=== PATIENT | female | born 1955 | race Caucasian/White ===

== ENCOUNTER 2016-08-24 10:54 | Outpatient (CLI) ==
[2016-08-24 11:10] LABS: BILIRUBIN,URINE Negative (NEGATIVE); KETONES,URINE Negative (NEGATIVE); LEUKOCYTE ESTERASE ,URINE 2+ (NEGATIVE); NITRITE,URINE Negative (NEGATIVE); PROTEIN,URINE 3+ (NEGATIVE); URINE, BLOOD 3+ (NEGATIVE)
[2016-08-24 11:13] LABS: ADD URINE MICROSCOPIC YES; BACTERIA,URINE 4+ (NOT PRESENT)
== END 2016-08-24 10:55 | disposition home or self-care (01) ==
LOC: LAB 10:54 → NONPT 10:55
PROVIDERS: ATTEND Family Medicine
DX: N39.0 Urinary tract infection, site not specified (principal); Z09 Encounter for follow-up examination after completed treatment for conditions other than malignant neoplasm
CPT/HCPCS: 81001; 87086

== ENCOUNTER 2017-03-19 14:11 | Outpatient (CLI) | payer OTHER | END 2017-03-19 14:12 | disposition home or self-care (01) | LOC: NONPT 14:11 | PROVIDERS: ATTEND Family Medicine | DX: R50.9 Fever, unspecified (principal) ==

== ENCOUNTER 2017-03-19 18:09 | Outpatient (CLI) | payer OTHER ==
[2017-03-19 18:44] LABS: BILIRUBIN,URINE Negative (NEGATIVE); KETONES,URINE Negative (NEGATIVE); LEUKOCYTE ESTERASE ,URINE 2+ (NEGATIVE); NITRITE,URINE Positive (NEGATIVE); PROTEIN,URINE 3+ (NEGATIVE); URINE, BLOOD 2+ (NEGATIVE)
[2017-03-19 18:45] LABS: BASOPHILS % (AUTO) 0.4 % (0.0-3.0); EOSINOPHILS # (AUTO) 0.1 K/ul (0.0-0.7); EOSINOPHILS % (AUTO) 0.9 % (0.0-7.0); HEMATOCRIT 45.7 % (37.0-47.0); HEMOGLOBIN 14.9 g/dl (12.0-16.0); IMMATURE GRANULOCYTE % (AUTO) 0.5 % (0.0-5.0); LYMPHOCYTES # (AUTO) 1.3 K/uL (0.60-3.4); LYMPHOCYTES % (AUTO) 23.7 (10.0-50.0); MEAN CORPUSCULAR HEMOGLOBIN 30.2 pg (27.0-31.0); MEAN CORPUSCULAR HGB CONC 32.6 (31.8-35.4); MEAN CORPUSCULAR VOLUME 92.5 fl (81.0-99.0); MONOCYTES # (AUTO) 0.5 K/uL (0.4-2.0); MONOCYTES % (AUTO) 9.4 (0-10); NEUTROPHILS # (AUTO) 3.7 K/ul (2.0-6.9); NEUTROPHILS % (AUTO) 65.1; PLATELET COUNT 186 10^3/uL (140-440); RED BLOOD COUNT 4.94 10^6/ul (4.20-5.40); WHITE BLOOD COUNT 5.65 K/ul (4.6-10.2)
[2017-03-19 18:47] LABS: ADD URINE MICROSCOPIC YES
[2017-03-19 18:49] LABS: BACTERIA,URINE 4+ (NOT PRESENT)
[2017-03-19 18:57] LABS: ALBUMIN 3.6 g/dL (3.4-5.0); ALBUMIN/GLOBULIN RATIO 1.38; ANION GAP 13.9; BILIRUBIN,TOTAL 0.39 mg/dL (0.00-1.20); BUN/CREATININE RATIO 72.88; CALCIUM 9.3 mg/dL (8.2-10.2); CREATININE 0.59 mg/dL (0.60-1.30); POTASSIUM 3.9 mmol/L (3.5-5.10); TOTAL PROTEIN 6.2 g/dL (6.4-8.2)
== END 2017-03-19 18:10 | disposition home or self-care (01) ==
LOC: LAB 18:09 → NONPT 18:10
PROVIDERS: ATTEND Family Medicine
DX: R50.9 Fever, unspecified (principal); Z96.0 Presence of urogenital implants
CPT/HCPCS: 80053; 81001; 85025; 87086

== ENCOUNTER 2017-06-05 12:17 | Outpatient (CLI) ==
[2017-06-05 12:36] LABS: BASOPHILS % (AUTO) 0.3 % (0.0-3.0); EOSINOPHILS # (AUTO) 0.1 K/ul (0.0-0.7); EOSINOPHILS % (AUTO) 1.6 % (0.0-7.0); HEMATOCRIT 42.1 % (37.0-47.0); HEMOGLOBIN 13.9 g/dl (12.0-16.0); IMMATURE GRANULOCYTE % (AUTO) 0.2 % (0.0-5.0); LYMPHOCYTES # (AUTO) 1.5 K/uL (0.60-3.4); LYMPHOCYTES % (AUTO) 24.6 (10.0-50.0); MEAN CORPUSCULAR HEMOGLOBIN 30.4 pg (27.0-31.0); MEAN CORPUSCULAR VOLUME 92.1 fl (81.0-99.0); MONOCYTES # (AUTO) 0.5 K/uL (0.4-2.0); MONOCYTES % (AUTO) 7.7 (0-10); NEUTROPHILS % (AUTO) 65.6; PLATELET COUNT 216 10^3/uL (140-440); RED BLOOD COUNT 4.57 10^6/ul (4.20-5.40); WHITE BLOOD COUNT 6.09 K/ul (4.6-10.2)
[2017-06-05 12:53] LABS: FLU INTERNAL QC INTERNAL QC VALID; RAPID FLU A NEGATIVE (NEGATIVE); RAPID FLU B NEGATIVE (NEGATIVE)
[2017-06-05 12:55] LABS: ALBUMIN 3.3 g/dL (3.4-5.0); ALBUMIN/GLOBULIN RATIO 1.18; ANION GAP 13.6; BILIRUBIN,TOTAL 0.27 mg/dL (0.00-1.20); BUN/CREATININE RATIO 62.26; CALCIUM 9.4 mg/dL (8.2-10.2); CREATININE 0.53 mg/dL (0.60-1.30); POTASSIUM 4.6 mmol/L (3.5-5.10); TOTAL PROTEIN 6.1 g/dL (6.4-8.2)
== END 2017-06-05 12:18 | disposition home or self-care (01) ==
LOC: NONPT 12:17
PROVIDERS: ATTEND Family Medicine
DX: R68.89 Other general symptoms and signs (principal); R05 Cough; R50.9 Fever, unspecified; R09.89 Other specified symptoms and signs involving the circulatory and respiratory systems
CPT/HCPCS: 80053; 85025; 87804

== ENCOUNTER 2017-06-06 12:48 | Outpatient (CLI) ==
[2017-06-06 13:04] LABS: BILIRUBIN,URINE Negative (NEGATIVE); KETONES,URINE Negative (NEGATIVE); LEUKOCYTE ESTERASE ,URINE 2+ (NEGATIVE); NITRITE,URINE Negative (NEGATIVE); PH,URINE 7.5 (5-9); PROTEIN,URINE 3+ (NEGATIVE); URINE, BLOOD 2+ (NEGATIVE)
[2017-06-06 13:31] LABS: ADD URINE MICROSCOPIC YES
== END 2017-06-06 12:49 | disposition home or self-care (01) ==
LOC: NONPT 12:48
PROVIDERS: ATTEND Family Medicine
DX: R50.9 Fever, unspecified (principal)
CPT/HCPCS: 81001; 87086

== ENCOUNTER 2017-06-12 03:49 | Outpatient (CLI) | END 2017-06-12 03:50 | disposition short-term general hospital (02) | LOC: AMBL 03:49 | PROVIDERS: ATTEND Family Medicine | DX: R11.10 Vomiting, unspecified (principal); R09.89 Other specified symptoms and signs involving the circulatory and respiratory systems; G80.9 Cerebral palsy, unspecified; Z74.01 Bed confinement status ==

== ENCOUNTER 2017-07-22 14:49 | Outpatient (CLI) | END 2017-07-22 14:50 | disposition home or self-care (01) | LOC: NONPT 14:49 | PROVIDERS: ATTEND Family Medicine | DX: R41.9 Unspecified symptoms and signs involving cognitive functions and awareness (principal) | CPT/HCPCS: 81001; 87086 ==

== ENCOUNTER 2017-07-24 16:26 | Outpatient (CLI) | END 2017-07-24 16:27 | disposition short-term general hospital (02) | LOC: AMBL 16:26 | PROVIDERS: ATTEND Internal Medicine | DX: R09.89 Other specified symptoms and signs involving the circulatory and respiratory systems (principal) ==

== ENCOUNTER 2017-09-14 20:53 | Outpatient (CLI) | END 2017-09-14 20:54 | disposition home or self-care (01) | LOC: LAB 20:53 | PROVIDERS: ATTEND Family Medicine | DX: R31.9 Hematuria, unspecified (principal); R50.9 Fever, unspecified | CPT/HCPCS: 81001; 87086; 87186 ==

== ENCOUNTER 2017-10-03 15:22 | Outpatient (CLI) | END 2017-10-03 15:23 | disposition home or self-care (01) | LOC: NONPT 15:22 | PROVIDERS: ATTEND Family Medicine | DX: N39.0 Urinary tract infection, site not specified (principal) | CPT/HCPCS: 81001; 87086 ==

== ENCOUNTER 2017-10-12 18:17 | Outpatient (CLI) | END 2017-10-12 18:18 | disposition home or self-care (01) | LOC: NONPT 18:17 | PROVIDERS: ATTEND Family Medicine | DX: R05 Cough (principal); R50.9 Fever, unspecified | CPT/HCPCS: 87502 ==

== ENCOUNTER 2017-11-02 18:43 | Emergency (ER) | payer OTHER ==
[2017-11-02 18:54] VITALS: BP 127/58; TEMP 97.9; BMI 26.4
[2017-11-02] MEDS ORDERED: GENTAK OPTH OINT OP STA (19:18)
[2017-11-02] MEDS ORDERED: EYE-STREAM OP STA (19:28)
--- NOTE | 2017-11-02 20:27 | ED.PDOC ---
General ED Provider: Dr. ALIZA DAMON Chief Complaint: Eye Problem Stated Complaint: 1 week history of right eye redness with drainage. Time Seen by Physician: 19:00 Mode of Arrival: Stretcher Information Source: Family, Long-Term, EMT Exam Limitations: Other (cerebral palsy) Primary Care Provider: EMMANUEL RAMOS Nursing and Triage Documentation Reviewed and Agree: Yes Reviewed sepsis parameters & appropriate labs ordered?: No System Inflammatory Response Syndrome: Not Applicable Sepsis Protocol: For patient's 13 years and over: Temp is 96.8 and below OR 101 and greater Pulse >90 BPM Resp >20/minute Acutely Altered Mental Status Are patient's symptoms suggestive of a new infection, such as: -Pneumonia -Skin, Soft Tissue -Endocarditis -UTI -Bone, Joint Infection -Implantable Device -Acute Abdominal Infection -Wound Infection -Meningitis -Blood Stream Catheter Infection -Unknown System Inflammatory Response Syndrome: Not Applicable EENT Complaint Exam - Eye Complaint/Exam Onset/Duration: 1 week Symptoms Are: Still present Timing: Constant Initial Severity: Mild Current Severity: Moderate Location: Right Associated Signs and Symptoms: Reports: Clear drainage, Purulent drainage Related History: Denies: Trauma, Glaucoma Eye Surgical History: Reports: None Penetrating Injury Risk Factors: None Globe Rupture Risk Factors: None Acute Glaucoma Risk Factors: Eye Inflammation Optic Artery Occlusion Risk Factors: None Orbit Findings: Normal Globe Findings: Intact Conjunctival Findings: Red Corneal Findings: Clear Fundi: Not visualized Slit Lamp Used: No Differential Diagnoses: Conjunctivitis Review of Systems - Review Of Systems Constitutional: Reports: Other (limitd due to cerebral palsy) Eyes: Reports: Drainage, Inflammation GI: Denies: Vomiting : Reports: Incontinence Skin: Reports: No symptoms All Other Systems: Other (cerebral palsy) Past Medical History - Past Medical History Previously Healthy: No Endocrine: Reports: None Cardiovascular: Reports: None Respiratory: Reports: None Hematological: Reports: None Gastrointestinal: Reports: None Genitourinary: Reports: None Neuro/Psych: Reports: CVA, Seizure Musculoskeletal: Reports: Unknown Cancer: Reports: Unknown Last Menstrual Period: menopause Other Pertinent Past Medical History: cerebral palsy--dysphagia - Surgical History General Surgical History: Reports: Unknown - Family History Family History: Reports: Unknown - Social History Smoking Status: Unknown if ever smoked Hx Substance Use: No Alcohol Screening: None Physical Exam - Physical Exam Appearance: Well-nourished Eyes: Conjunctiva inflammed Critical Care Note - Critical Care Note Total Time (mins): 0 Course - Course Orders, Labs, Meds: Orders Category Date Time Status ED EYE IRRIGATION .ONCE EMERGENCY 11/02/17 19:28 Active Balanced Salt Solution [Eye-Stream] MEDS 11/02/17 19:28 Discontinued 1 bottle OP ONCE STA Gentamicin Sulfate [Gentak Opth Oint] MEDS 11/02/17 19:18 Discontinued 1 applic OP ONCE STA Medications Discontinued Medications Generic Name Dose Route Start Last Admin Trade Name Adrianna PRN Reason Stop Dose Admin Eye Irrigation Solution 1 bottle 11/02/17 19:28 11/02/17 20:12 Eye-Stream OP 11/02/17 19:29 1 bottle ONCE STA Administration Gentamicin Sulfate 1 applic 11/02/17 19:18 11/02/17 20:12 Gentak Opth Oint OP 11/02/17 19:19 1 applic ONCE STA Administration Vital Signs: Temp Pulse Resp BP Pulse Ox 11/02/17 18:44 97.9 F 88 20 127/58 L 97 Departure - Departure Time of Disposition: 20:25 Disposition: HOME SELF-CARE Discharge Problem: Conjunctivitis, right eye Qualifiers: Conjunctivitis type: acute Acute conjunctivitis type: bacterial Qualified Code( s): H10.31 - Unspecified acute conjunctivitis, right eye Instructions: Conjunctivitis (ED) Condition: Fair Pt referred to PMD for follow-up: Yes IPMP verified?: No Additional Instructions: Use eye ointment on the right eye Three times a day for 10 days. Follow up with PCPin 3 days. Allergies/Adverse Reactions: Allergies No Known Allergies Allergy (Unverified 11/02/17 18:59) Home Medications: Ambulatory Orders Acetaminophen 650 mg RC Q6HR PRN 11/02/17 Ascorbate Calcium [Vitamin C] 500 mg GT BEDTIME 11/02/17 Bisacodyl [Dulcolax] 10 mg RC DAILY 11/02/17 Calcium Carbonate/Vitamin D3 [Caltrate 600 + D Tablet] 1 each PO BID 11/02/17 Cholecalciferol (Vitamin D3) [Vitamin D3] 2,000 unit GT BID 11/02/17 Docusate Sodium [Dok] 100 mg PO DAILY 11/02/17 Erythromycin Base/Ethanol [Erythromycin 2% Solution] 60 ml TP Q12H PRN 11/02/17 Fluticasone Propionate [Flonase] 2 spray NS DAILY 11/02/17 Folic Acid 1 mg PO DAILY 11/02/17 Halobetasol Propionate 15 gm TP 3 TIMES PER WEEK PRN 11/02/17 Hypromellose [Goniovisc] 1 drop OP QID 11/02/17 Ketoconazole [Nizoral 2% Shampoo] 1 applic TP DIRECTED 11/02/17 Magnesium Hydroxide [Milk of Magnesia] 30 ml PO DIRECTED PRN 11/02/17 Metronidazole 60 gm TP BID 11/02/17 Mineral Oil/Petrolatum,White [Artificial Tears Eye Ointment] 3.5 gm OP BEDTIME 11/02/17 Nystatin [Nystop Powder] 1 applic TP Q8HR PRN 11/02/17 Phenytoin [Dilantin-125] 125 mg PO BID 11/02/17 Ranitidine HCl [Zantac] 150 mg PO QDAC 11/02/17 Rivaroxaban [Xarelto] 20 mg PO DAILY 11/02/17 Disposition Discussed With: Family
== END 2017-11-02 20:34 | disposition home or self-care (01) ==
LOC: ED 18:43
DX: H10.31 Unspecified acute conjunctivitis, right eye (principal); G80.9 Cerebral palsy, unspecified; Z86.73 Personal history of transient ischemic attack (TIA), and cerebral infarction without residual deficits; H57.11 Ocular pain, right eye; H57.9 Unspecified disorder of eye and adnexa
CPT/HCPCS: 99283

== ENCOUNTER 2017-11-14 14:45 | Outpatient (CLI) | payer OTHER | END 2017-11-14 14:46 | disposition home or self-care (01) | LOC: LAB 14:45 | PROVIDERS: ATTEND Family Medicine | DX: R56.9 Unspecified convulsions (principal); Z79.899 Other long term (current) drug therapy | CPT/HCPCS: 36415; 80185 ==

== ENCOUNTER 2017-11-15 07:32 | Outpatient (CLI) | payer OTHER | END 2017-11-15 07:33 | disposition home or self-care (01) | LOC: NONPT 07:32 | PROVIDERS: ATTEND Family Medicine | DX: R89.2 Abnormal level of other drugs, medicaments and biological substances in specimens from other organs, systems and tissues (principal) | CPT/HCPCS: 80185 ==

== ENCOUNTER 2017-11-16 05:32 | Outpatient (CLI) | payer OTHER | END 2017-11-16 05:33 | disposition home or self-care (01) | LOC: LAB 05:32 | PROVIDERS: ATTEND Family Medicine | DX: R89.2 Abnormal level of other drugs, medicaments and biological substances in specimens from other organs, systems and tissues (principal) | CPT/HCPCS: 36415; 80185 ==

== ENCOUNTER 2017-11-18 09:22 | Outpatient (CLI) | END 2017-11-18 09:23 | disposition home or self-care (01) | LOC: NONPT 09:22 | PROVIDERS: ATTEND Family Medicine | DX: R89.2 Abnormal level of other drugs, medicaments and biological substances in specimens from other organs, systems and tissues (principal) | CPT/HCPCS: 80185 ==

== ENCOUNTER 2017-12-02 13:58 | Outpatient (CLI) | END 2017-12-02 13:59 | disposition home or self-care (01) | LOC: NONPT 13:58 | PROVIDERS: ATTEND Family Medicine | DX: N39.0 Urinary tract infection, site not specified (principal); R50.9 Fever, unspecified; R82.90 Unspecified abnormal findings in urine | CPT/HCPCS: 81001; 87086 ==

== ENCOUNTER 2017-12-14 11:25 | Outpatient (CLI) | END 2017-12-14 11:43 | disposition short-term general hospital (02) | LOC: AMBL 11:25 | PROVIDERS: ATTEND Internal Medicine Geriatric Medicine | DX: T85.598A Other mechanical complication of other gastrointestinal prosthetic devices, implants and grafts, initial encounter (principal); Z43.1 Encounter for attention to gastrostomy ==

== ENCOUNTER 2017-12-19 15:56 | Outpatient (CLI) | END 2017-12-19 15:57 | disposition home or self-care (01) | LOC: NONPT 15:56 | PROVIDERS: ATTEND Family Medicine | DX: N39.0 Urinary tract infection, site not specified (principal) | CPT/HCPCS: 81001; 87086; 87186 ==

== ENCOUNTER 2018-08-15 21:53 | Outpatient (CLI) | END 2018-08-15 21:54 | disposition home or self-care (01) | LOC: AMBL 21:53 | PROVIDERS: ATTEND Family Medicine | DX: K94.23 Gastrostomy malfunction (principal); Z43.1 Encounter for attention to gastrostomy; G80.9 Cerebral palsy, unspecified ==

== ENCOUNTER 2018-11-06 10:52 | Outpatient (CLI) | payer OTHER | END 2018-11-06 10:53 | disposition home or self-care (01) | LOC: NONPT 10:52 | PROVIDERS: ATTEND Family Medicine | DX: R56.9 Unspecified convulsions (principal) | CPT/HCPCS: 80185 ==